=== PATIENT | male | born 1970 | race Caucasian/White ===

== ENCOUNTER 2017-10-21 09:57 | Emergency (ER) | payer OTHER ==
[~2017-10-21] VITALS: Ht 179.1 cm; Wt 97.5 kg
[~2017-10-21 09:57] MED LIST: LEVO100T60 PO; PRIN20TA2 PO
[2017-10-21 10:18] VITALS: BP 119/79; PULSE 101; RESP 24; TEMP 98.1; O2SAT 98
[2017-10-21 10:24] VITALS: BP 119/79; PULSE 89; RESP 24; O2SAT 100
[2017-10-21] MEDS ORDERED: LISI-515 PO (10:34)
[2017-10-21] MEDS ORDERED: LEVO100T5 PO (10:34)
[2017-10-21] MEDS ORDERED: SODIUM CHLOR 0.9% 1000 ML INJ 1,000 ML IV ONE (10:41)
[2017-10-21 10:43] VITALS: O2SAT 99
[2017-10-21] MEDS ORDERED: MECLIZINE HCL 25 MG TAB PO ONE (10:45)
[2017-10-21] MEDS ORDERED: SODIUM CHLORIDE 0.9% FLUSH 10 ML FLUSH IVF PRN (10:45)
[2017-10-21] MEDS ORDERED: ONDANSETRON HCL 4 MG/2 ML VIAL IVP ONE (10:45)
[2017-10-21 10:52] VITALS: BP_SYST 136; BP_SYST 138; BP_SYST 144; BP_DIAS 88; BP_DIAS 90; BP_DIAS 92; RESP 18; RESP 22; RESP 24
--- NOTE | 2017-10-21 10:52 | PD ---
HPI Chief Complaint: Dizziness Time Seen by Provider: 10:22 Travel History International Travel<30 days: No Contact w/Intl Traveler<30days: No Traveled to known affect area: No History of Present Illness HPI The patient is a 47-year-old male who presents to the emergency department for dizziness. The patient states his symptoms started this morning at approximately 8 AM with dizziness. The patient states he got out of the car and was trying to ambulate into the restaurant and had to hold onto the cart. The patient felt like he was lightheaded and off balance. The patient states his symptoms are worse when he stands upright and tries ambulate and is slightly alleviated at rest. He states that movement of the head to the left and right does not exacerbate his symptoms, however, standing and ambulating does exacerbate his symptoms. He denies any dysarthria, focal deficits, or weakness/numbness of the upper or lower extremities. The patient states she was diagnosed with a TIA years ago, but is not currently on any statins, high blood pressure medications, or anticoagulants. The patient's symptoms are intermittent, worse with standing upright and ambulating. The patient states when he walks he feels like he is walking to the right and has a hold onto objects. The patient denies any tinnitus, hearing changes, or recent URIs. PFSH Past Medical History Cardiovascular Problems: Yes Cerebrovascular Accident: Yes (TIA) Diabetes: No Diminished Hearing: No Glaucoma: No Hepatitis: No Hiatal Hernia: No Hypertension: Yes Medical other: Yes (TIA [place] 2004) Pneumonia: Yes Thyroid Disease: No Past Surgical History Abdominal Surgery: No Cardiac Surgery: No Ear Surgery: No Endocrine Surgery: No Eye Surgery: No Genitourinary Surgery: No Gynecologic Surgery: No Oral Surgery: No Thoracic Surgery: No Other Surgery: Yes (RIGHT LOWER ABD/GROIN (STAPH INFECTION)) Social History Alcohol Use: Yes (SOCIALLY) Tobacco Use: No Substance Use: No Allergies-Medications (Allergen,Severity, Reaction): Coded Allergies: Iodinated Contrast- Oral and IV Dye (Verified Allergy, Severe, 10/21/17) "SHAKES" Reported Meds & Prescriptions Reported Meds & Active Scripts Active Reported Lisinopril 20 Mg Tab 20 Mg PO DAILY Levothyroxine (Levothyroxine Sodium) 100 Mcg Tab 100 Mcg PO DAILY Review of Systems Except as stated in HPI: all other systems reviewed are Neg Eyes: No: Blurred Vision HENT: Positive: Lightheadedness, No: Headaches, Vertigo Cardiovascular: No: Chest Pain or Discomfort Respiratory: No: Shortness of Breath Gastrointestinal: Positive: Nausea, No: Vomiting, Abdominal Pain Musculoskeletal: No: Weakness Neurologic: Positive: Dizziness, Ataxia, No: Focal Abnormalities, Headache, Change in Mentation, Slurred Speech, Paresthesia, Seizures, Sensory Disturbance Physical Exam Narrative GENERAL: Awake, alert, pleasant 47-year-old male who appears his stated age and is in no acute respiratory distress. SKIN: Focused skin assessment warm/dry. HEAD: Atraumatic. Normocephalic. EYES: Pupils equal and round. Pupils are 4 mm bilateral and reactive. EOMs are intact. No visible nystagmus. ENT: No nasal bleeding or discharge. Mucous membranes pink and moist. TMs are translucent and EACs are clear. NECK: Trachea midline. No JVD. CARDIOVASCULAR: Regular rate and rhythm. No murmur appreciated. RESPIRATORY: No accessory muscle use. Clear to auscultation. Breath sounds equal bilaterally. GASTROINTESTINAL: Abdomen soft, non-tender, nondistended. MUSCULOSKELETAL: No obvious deformities. No clubbing. No cyanosis. No edema. NEUROLOGICAL: Awake and alert. No obvious cranial nerve deficits. Motor grossly within normal limits. Normal speech. EOMs are intact. Patient is able to see fingers at a distance of 2 feet without difficulty. Sensation is symmetric on the face, arms, legs bilaterally. No drift of the upper or lower extremities. Finger to nose is normal. [id number] is normal. Alternating hand movements are within normal limits. When patient ambulates he appears to drift to the left, needs assistance. PSYCHIATRIC: Appropriate mood and affect; insight and judgment normal. Data Data Last Documented VS Vital Signs Date Time Temp Pulse Resp B/P (MAP) Pulse Ox O2 Delivery O2 Flow Rate FiO2 10/21/17 12:40 81 23 126/90 (102) 99 Room Air 10/21/17 10:18 98.1 Orders Orders Electrocardiogram (10/21/17 10:41) Complete Blood Count With Diff (10/21/17 10:41) Comprehensive Metabolic Panel (10/21/17 10:41) Magnesium (Mg) (10/21/17 10:41) Ckmb (Isoenzyme) Profile (10/21/17 10:41) Troponin I (10/21/17 10:41) Act Partial Throm Time (Ptt) (10/21/17 10:41) Prothrombin Time / Inr (Pt) (10/21/17 10:41) Ct Brain W/O Iv Contrast(Rout) (10/21/17 10:41) Ecg Monitoring (10/21/17 10:41) Iv Access Insert/Monitor (10/21/17 10:41) Oximetry (10/21/17 10:41) Meclizine (Antivert) (10/21/17 10:45) Ondansetron Inj (Zofran Inj) (10/21/17 10:45) Sodium Chloride 0.9% Flush (Ns Flush) (10/21/17 10:45) Sodium Chlor 0.9% 1000 Ml Inj (Ns 1000 M (10/21/17 10:41) Orthostatic Vital Signs (10/21/17 10:41) Mri Brain W/O Contrast (10/21/17 ) CKMB (10/21/17 10:50) CKMB% (10/21/17 10:50) Labs Laboratory Tests Test 10/21/17 10:50 White Blood Count 7.5 TH/MM3 Red Blood Count 5.10 MIL/MM3 Hemoglobin 15.9 GM/DL Hematocrit 46.4 % Mean Corpuscular Volume 91.1 FL Mean Corpuscular Hemoglobin 31.3 PG Mean Corpuscular Hemoglobin Concent 34.3 % Red Cell Distribution Width 13.5 % Platelet Count 256 TH/MM3 Mean Platelet Volume 9.0 FL Neutrophils (%) (Auto) 54.8 % Lymphocytes (%) (Auto) 31.4 % Monocytes (%) (Auto) 8.0 % Eosinophils (%) (Auto) 5.1 % Basophils (%) (Auto) 0.7 % Neutrophils # (Auto) 4.1 TH/MM3 Lymphocytes # (Auto) 2.3 TH/MM3 Monocytes # (Auto) 0.6 TH/MM3 Eosinophils # (Auto) 0.4 TH/MM3 Basophils # (Auto) 0.1 TH/MM3 CBC Comment DIFF FINAL Differential Comment Prothrombin Time 10.1 SEC Prothromb Time International Ratio 1.0 RATIO Activated Partial Thromboplast Time 24.0 SEC Blood Urea Nitrogen 13 MG/DL Creatinine 0.77 MG/DL Random Glucose 90 MG/DL Total Protein 6.7 GM/DL Albumin 2.8 GM/DL Calcium Level 7.2 MG/DL Magnesium Level 1.8 MG/DL Alkaline Phosphatase 55 U/L Aspartate Amino Transf (AST/SGOT) 31 U/L Alanine Aminotransferase (ALT/SGPT) 36 U/L Total Bilirubin 0.3 MG/DL Sodium Level 141 MEQ/L Potassium Level 4.1 MEQ/L Chloride Level 113 MEQ/L Carbon Dioxide Level 21.7 MEQ/L Anion Gap 6 MEQ/L Estimat Glomerular Filtration Rate 109 ML/MIN Protein Corrected Calcium 7.4 MG/DL Total Creatine Kinase 186 U/L Creatine Kinase MB 4.2 NG/ML Troponin I LESS THAN 0.02 NG/ML MDM Medical Decision Making Medical Screen Exam Complete: Yes Emergency Medical Condition: Yes Medical Record Reviewed: Yes Interpretation(s) EKG reveals normal sinus rhythm with a rate 88. Q wave noted in lead 3 and aVF. Laboratory Tests Test 10/21/17 10:50 White Blood Count 7.5 TH/MM3 Red Blood Count 5.10 MIL/MM3 Hemoglobin 15.9 GM/DL Hematocrit 46.4 % Mean Corpuscular Volume 91.1 FL Mean Corpuscular Hemoglobin 31.3 PG Mean Corpuscular Hemoglobin Concent 34.3 % Red Cell Distribution Width 13.5 % Platelet Count 256 TH/MM3 Mean Platelet Volume 9.0 FL Neutrophils (%) (Auto) 54.8 % Lymphocytes (%) (Auto) 31.4 % Monocytes (%) (Auto) 8.0 % Eosinophils (%) (Auto) 5.1 % Basophils (%) (Auto) 0.7 % Neutrophils # (Auto) 4.1 TH/MM3 Lymphocytes # (Auto) 2.3 TH/MM3 Monocytes # (Auto) 0.6 TH/MM3 Eosinophils # (Auto) 0.4 TH/MM3 Basophils # (Auto) 0.1 TH/MM3 CBC Comment DIFF FINAL Differential Comment Prothrombin Time 10.1 SEC Prothromb Time International Ratio 1.0 RATIO Activated Partial Thromboplast Time 24.0 SEC Blood Urea Nitrogen 13 MG/DL Creatinine 0.77 MG/DL Random Glucose 90 MG/DL Total Protein 6.7 GM/DL Albumin 2.8 GM/DL Calcium Level 7.2 MG/DL Magnesium Level 1.8 MG/DL Alkaline Phosphatase 55 U/L Aspartate Amino Transf (AST/SGOT) 31 U/L Alanine Aminotransferase (ALT/SGPT) 36 U/L Total Bilirubin 0.3 MG/DL Sodium Level 141 MEQ/L Potassium Level 4.1 MEQ/L Chloride Level 113 MEQ/L Carbon Dioxide Level 21.7 MEQ/L Anion Gap 6 MEQ/L Estimat Glomerular Filtration Rate 109 ML/MIN Protein Corrected Calcium 7.4 MG/DL Total Creatine Kinase 186 U/L Creatine Kinase MB 4.2 NG/ML Troponin I LESS THAN 0.02 NG/ML CT the brain reveals no acute intracranial disease. MRI of the brain reveals no acute intracranial abnormality. No acute infarction. Differential Diagnosis Differential diagnosis includes intracranial hemorrhage, CVA, TIA, cerebellar infarct, hyponatremia, labyrinthitis, Mnire's disease, benign positional vertigo, arrhythmia, orthostatic hypotension, dehydration. Narrative Course IV was established, labs are drawn and sent, and the patient was placed on cardiac telemetry monitoring and continuous pulse oximetry monitoring. EKG was ordered and interpreted. Stat CT the brain was obtained to rule out intracranial hemorrhage. MRI of the brain was ordered to evaluate for possible cerebellar infarct. CT of the brain was negative. MRI of the brain was negative. Laboratory evaluation reveals hyponatremia with a protein corrected calcium is 7.4, no evidence of hyponatremia. The patient appears to have vertigo/dizziness that is not related to infarct. The patient was administered meclizine and given a trial of ambulation. The patient was able to ambulate, just feels fatigued. No evidence of CVA. The patient will be discharged home on meclizine, is advised to stand up slowly, no driving until asymptomatic, work excuse for 3 days. Diagnosis Primary Impression: Dizziness Patient Instructions: General Instructions Additional Instructions: Work excuse for 3 days. Meclizine as directed. No driving until asymptomatic. Follow-up with ENT and/or neuro if symptoms persist. Please provide the patient a copy of his MRI results, CT results and lab results at discharge. Return if symptoms worsen or progress. Med/Other Pt SpecificInfo: Prescription(s) given Scripts Meclizine (Meclizine) 25 Mg Tab 25 MG PO TID Y for VERTIGO, #12 TAB 0 Refills Prov: Justin Shah MD 10/21/17 Disposition: 01 DISCHARGE HOME Condition: Stable Justin Shah MD Oct 21, 2017 10:52
[2017-10-21 11:00] VITALS: BP 138/92; PULSE 88; RESP 20; O2SAT 100
[2017-10-21 11:17] LABS: AUTOMATED NEUTROPHIL # 4.1 TH/MM3 (1.8-7.7); BASOPHIL # 0.1 TH/MM3 (0-0.2); BASOPHIL % 0.7 % (0.0-2.0); EOSINOPHIL # 0.4 TH/MM3 (0-0.4); EOSINOPHIL % 5.1 % (0.0-4.0); HEMATOCRIT 46.4 % (39.0-51.0); HEMO FLAGS DIFF FINAL; LYMPH % 31.4 % (9.0-44.0); LYMPHOCYTE # 2.3 TH/MM3 (1.0-4.8); MEAN CELL VOLUME 91.1 FL (80.0-100.0); MEAN CORPUSCULAR HEMOGLOBIN 31.3 PG (27.0-34.0); MEAN CORPUSCULAR HGB CONC 34.3 % (32.0-36.0); NEUT % 54.8 % (16.0-70.0); PLATELET COUNT 256 TH/MM3 (150-450); RED CELL DISTRIBUTION WIDTH 13.5 % (11.6-17.2); WHITE BLOOD COUNT 7.5 TH/MM3 (4.0-11.0)
[2017-10-21 11:27] LABS: PROTHROMBIN TIME - PATIENT 10.1 SEC (9.8-11.6)
[2017-10-21 11:43] LABS: ALKALINE PHOSPHATASE 55 U/L (45-117); ALT (GPT) 36 U/L (12-78); ANION GAP 6 MEQ/L (5-15); AST (GOT) 31 U/L (15-37); BICARBONATE 21.7 MEQ/L (21.0-32.0); BLOOD UREA NITROGEN 13 MG/DL (7-18); CHLORIDE 113 MEQ/L (98-107); CREATINE KINASE 186 U/L (39-308); GLOMERULAR FILTRATION RATE 109 ML/MIN (>89); MAGNESIUM 1.8 MG/DL (1.5-2.5); SODIUM (NA) 141 MEQ/L (136-145); TOTAL BILIRUBIN ADULT 0.3 MG/DL (0.2-1.0)
[2017-10-21 11:44] LABS: POTASSIUM 4.1 MEQ/L (3.5-5.1)
[2017-10-21 11:48] LABS: CALCIUM-PROTEIN CORRECTED 7.4 MG/DL (8.5-10.1)
--- NOTE | 2017-10-21 11:53 | RADRPT ---
EXAM DATE/TIME: 10/21/2017 11:22 [facility] COMPARISON: CT BRAIN W/O CONTRAST, October 21, 2017, 11:33. INDICATIONS : Dizziness. CVA. MEDICAL HISTORY : Hypertension. SURGICAL HISTORY : Right leg fracture and repair. ENCOUNTER: Initial ACUITY: 1 day PAIN SCORE: 0/10 LOCATION: head. TECHNIQUE: Multiplanar, multisequence MRI of the brain was performed without contrast. FINDINGS: CEREBRUM: The ventricles are normal for age. No evidence of midline shift, mass lesion, hemorrhage or acute in farction. No extraaxial fluid collections are seen. The pituitary gland and suprasellar cistern are normal in configuration. WHITE MATTER: No significant signal abnormalities are seen in the white matter. POSTERIOR FOSSA: The cerebellum and brainstem are intact. The 4th ventricle is midline. The cerebellopontine angle is unremarkable. The cerebellar tonsils are normal in position. DIFFUSION IMAGING: No focal areas of restricted diffusion are seen. No evidence of acute infarction. EXTRACRANIAL: The visualized portions of the orbits and paranasal sinuses are unremarkable. CONCLUSION: No acute intracranial abnormality. No acute infarction. Jeff Ojeda MD on October 21, 2017 at 11:50 Board Certified Radiologist. This report was verified electronically.
--- NOTE | 2017-10-21 11:58 | RADRPT ---
EXAM DATE/TIME: 10/21/2017 11:33 [facility] COMPARISON: No previous studies available for comparison. INDICATIONS : Dizziness since this am with nausea denies trauma. RADIATION DOSE: 56.42 CTDIvol (mGy) MEDICAL HISTORY : Hypertension. TIA SURGICAL HISTORY : ENCOUNTER: Initial ACUITY: 1 day PAIN SCALE: 2/10 LOCATION: Bilateral cranial TECHNIQUE: Multiple contiguous axial images were obtained of the head. Using automated exposure control and adj ustment of the mA and/or kV according to patient size, radiation dose was kept as low as reasonably a chievable to obtain optimal diagnostic quality images. DICOM format image data is available electro nically for review and comparison. FINDINGS: CEREBRUM: The ventricles are normal for age. No evidence of midline shift, mass lesion, hemorrhage or acute in farction. No extra-axial fluid collections are seen. POSTERIOR FOSSA: The cerebellum and brainstem are intact. The 4th ventricle is midline. The cerebellopontine angle i s unremarkable. EXTRACRANIAL: The visualized portion of the orbits is intact. SKULL: The calvaria is intact. No evidence of skull fracture. CONCLUSION: No acute intracranial disease. Jeff Ojeda MD on October 21, 2017 at 11:56 Board Certified Radiologist. This report was verified electronically.
[2017-10-21 12:07] LABS: CKMB 4.2 NG/ML (0.5-3.6)
[2017-10-21 12:40] VITALS: BP 126/90; PULSE 81; RESP 23; O2SAT 99
[2017-10-21] MEDS ORDERED: MECL-62 PO (12:59)
--- NOTE | 2017-10-21 14:47 | EKG ---
Date Performed: 10/21/2017 Time Performed: 10:21:36 PTAGE: 47 years EKG: Sinus rhythm PROBABLE INFERIOR MYOCARDIAL INFARCTION ABNORMAL ECG NO PREVIOUS TRACING DOCTOR: Storm Lovelace Interpretating Date/Time 10/21/2017 14:45:53
== END 2017-10-21 13:40 | disposition home or self-care (01) ==
LOC: NEPC 09:57
DX: R42 Dizziness and giddiness (principal); R11.0 Nausea; I10 Essential (primary) hypertension; R94.31 Abnormal electrocardiogram [ECG] [EKG]; Z79.899 Other long term (current) drug therapy; Z86.73 Personal history of transient ischemic attack (TIA), and cerebral infarction without residual deficits
CPT/HCPCS: 70450; 70551; 80053; 82550; 82552; 83735; 84484; 85025; 85610; 85730; 93005; 96374; 99285; J2405; J7030